=== PATIENT | male | born 1990 | race Caucasian/White ===

== ENCOUNTER 2017-10-28 04:36 | Emergency (ER) | payer SELFPAY ==
[~2017-10-28] VITALS: Ht 177.8 cm; Wt 102.0 kg
[2017-10-28] MEDS ORDERED: LIDOCAINE-MPF 2% ,5ML INFIL ONE (05:00)
[2017-10-28] MEDS ORDERED: LIDOCAINE-MPF 1%, 5ML INFIL ONE (05:00)
[2017-10-28] MEDS ORDERED: DIPH,PERTUSS(ACELL),TET VAC/PF 0.5 ML IM-VACC ONE ×2 (05:00→05:07)
[2017-10-28] MEDS ORDERED: LIDOCAINE-MPF 2% ,5ML ONE (05:07)
[2017-10-28 06:47] VITALS: BP 128/79
== END 2017-10-28 06:53 | disposition home or self-care (01) ==
LOC: ED 05:15
DX: S02.2XXA Fracture of nasal bones, initial encounter for closed fracture (principal); S01.112A Laceration without foreign body of left eyelid and periocular area, initial encounter; F10.229 Alcohol dependence with intoxication, unspecified; Y04.8XXA Assault by other bodily force, initial encounter; Y93.89 Activity, other specified; Y92.89 Other specified places as the place of occurrence of the external cause; Y99.8 Other external cause status; Y90.9 Presence of alcohol in blood, level not specified
CPT/HCPCS: 12011; 70450; 70486; 72125; 90471; 90715; 99284; J3490